=== PATIENT | male | born 1955 | race Caucasian/White ===

== ENCOUNTER 2021-03-04 14:34 | Emergency (ER) | payer MEDICARE ==
[~2021-03-04] VITALS: Ht 182.9 cm; Wt 69.0 kg
== END 2021-03-04 20:50 | disposition short-term general hospital (02) ==
LOC: ED 14:34
DX: S72.012A Unspecified intracapsular fracture of left femur, initial encounter for closed fracture (principal); Z20.822 Contact with and (suspected) exposure to COVID-19; I48.91 Unspecified atrial fibrillation; F17.200 Nicotine dependence, unspecified, uncomplicated; W18.30XA Fall on same level, unspecified, initial encounter
CPT/HCPCS: 73502; 80048; 85025; 85610; 96374; 96375; 96376; 99285-25; C9803; J1170; J2405; J7030; U0003